=== PATIENT | male | born 1950 | race Two or more races ===

== ENCOUNTER 2017-06-23 22:01 | Emergency (ER) | payer MEDICARE, MEDICAID ==
[~2017-06-23] VITALS: Ht 162.6 cm; Wt 74.8 kg
[2017-06-23 22:10] VITALS: BP 137/83
[2017-06-23] MEDS ORDERED: NKM (22:10)
[2017-06-23] MEDS ORDERED: Ketorolac 30mg Inj IV ONE (22:15)
--- NOTE | 2017-06-23 22:18 | Emergency Room Report ---
History of Present Illness General Chief Complaint: Chest Pain Source: Patient, Family Member Present Illness HPI This is a 67-year-old male with no past medical history. He presents with main complaint of headache. His been ongoing for the last month. On and off. Mostly left-sided. The last week his blood pressure been fluctuating. At Dr. Ventura's office this was systolic 160-170. He is currently not on any medication. Has not take anything for the headache. Nothing [id number]. No fever or chills. No nausea no vomiting. No focal deficit. He came in today because he said he felt slight chest pressure. No exertional component. No nausea no vomiting. No shortness of breath. No diaphoresis. Allergies: Coded Allergies: No Known Allergies (Unverified , 06/23/17) Patient History Past Medical History: none, see triage record, old chart reviewed Past Surgical History: none Pertinent Family History: none Social History: Denies: smoking Immunizations: other Reviewed Nursing Documentation: PMH: Agreed, PSxH: Agreed Nursing Documentation-PMH Past Medical History: No Stated History Review of Systems Eye: Denies: eye pain, blurred vision ENT: Denies: ear pain, nose congestion, throat swelling Respiratory: Denies: cough, shortness of breath Cardiovascular: Reports: chest pain, Denies: palpitations Gastrointestinal: Denies: abdominal pain, diarrhea, nausea, vomiting Musculoskeletal: Denies: back pain, joint pain Skin: Denies: rash Neurological: Reports: headache, Denies: numbness Endocrine: Denies: increased thirst, increased urine Hematologic/Lymphatic: Denies: easy bruising All Other Systems: negative except mentioned in HPI Physical Exam Vital Signs Date Time Temp Pulse Resp B/P (MAP) Pulse Ox O2 Delivery O2 Flow Rate FiO2 06/23/17 22:06 97.9 63 16 137/83 96 Room Air vitals unremarkable Sp02 EP Interpretation: reviewed, normal General Appearance: well appearing, no apparent distress, alert Head: normocephalic, atraumatic Eyes: bilateral eye PERRL, bilateral eye EOMI ENT: hearing grossly normal, normal pharynx Neck: full range of motion, supple, no meningismus Respiratory: chest non-tender, lungs clear, normal breath sounds Cardiovascular #1: regular rate, rhythm, no murmur Gastrointestinal: normal bowel sounds, non tender, no mass, no organomegaly, no bruit, non-distended Musculoskeletal: back normal, gait/station normal, normal range of motion Psychiatric: mood/affect normal Skin: warm/dry Medical Decision Making Diagnostic Impression: Primary Impression: Chest pain Qualified Codes: R07.9 - Chest pain, unspecified Additional Impression: Headache Qualified Codes: R51 - Headache ER Course Patient presents with headache and chest pain. No evidence of intracranial bleed, some CVA, mass or meningitis. CT unremarkable. Chest pain is atypical in nature. Notice of ACS, PE, dissection to name a few. Discharge home. Headache better after Toradol. Lab Results Impression labs normal EKG Diagnostic Results Rate: normal Rhythm: NSR ST Segments: no acute changes Rhythm Strip Diag. Results Rhythm Strip Time: 22:17 EP Interpretation: yes Rate: 59 Rhythm: NSR, no PVC's, no ectopy Chest X-Ray Diagnostic Results Chest X-Ray Diagnostic Results : Chest X-Ray Ordered: Yes # of Views/Limited/Complete: 1 View Indication: Chest Pain EP Interpretation: Yes Interpretation: no consolidation, no effusion, no pneumothorax, no acute cardiopulmonary disease Impression: No acute disease Electronically Signed by: Electronically signed by Hank Dave MD Last Vital Signs Date Time Temp Pulse Resp B/P (MAP) Pulse Ox O2 Delivery O2 Flow Rate FiO2 06/23/17 22:06 97.9 63 16 137/83 96 Room Air Status: improved Disposition: HOME, SELF-CARE Condition: Stable Scripts Naproxen* (NAPROXEN*) 500 Mg Tablet 500 MG ORAL TWICE A WEEK, #30 TAB 0 Refills Prov: HANK DAVE M.D. 06/23/17 Patient Instructions: Nonspecific Chest Pain Additional Instructions: Followup with Dr. Ventura is scheduled. Return if symptom worsen. HANK DAVE M.D. Jun 23, 2017 22:17
[2017-06-23 22:31] LABS: BASOPHILS % (AUTO) 0.9 % (0.0-2.0); EOSINOPHILS % (AUTO) 2.6 % (0.0-3.0); LYMPHOCYTES % (AUTO) 41.5 % (20.0-45.0); MEAN CORPUSCULAR HEMOGLOBIN 32.2 PG (27.0-31.0); MEAN CORPUSCULAR HGB CONC 32.4 G/DL (32.0-36.0); MEAN CORPUSCULAR VOLUME 100 FL (80-99); MEAN PLATELET VOLUME 9.5 FL (6.5-10.1); MONOCYTES % (AUTO) 6.1 % (1.0-10.0); NEUTROPHILS % (AUTO) 48.9 % (45.0-75.0); PLATELET COUNT 155 K/UL (150-450); RED BLOOD COUNT 4.24 M/UL (4.70-6.10); RED CELL DISTRIBUTION WIDTH 10.5 % (11.6-14.8); WHITE BLOOD COUNT 7.6 K/UL (4.8-10.8)
[2017-06-23 23:02] LABS: ALANINE AMINOTRANSFERASE 20 U/L (12-78); ALBUMIN/GLOBULIN RATIO 1.1 (1.0-2.7); ANION GAP 9 mmol/L (5-15); ASPARTATE AMINO TRANSFERASE 15 U/L (15-37); CALCIUM 9.3 MG/DL (8.5-10.1); CARBON DIOXIDE 27 MMOL/L (21-32); CHLORIDE 105 MMOL/L (98-107); CREATININE 1.2 MG/DL (0.55-1.30); GLOMERULAR FILTRATION RATE > 60 mL/min (>60); POTASSIUM 3.8 MMOL/L (3.5-5.1); SODIUM 141 MMOL/L (136-145); TOTAL PROTEIN 6.8 G/DL (6.4-8.2)
[2017-06-23] MEDS ORDERED: NAPROXEN500 M2 ORAL (23:26)
[2017-06-23 23:28] VITALS: BP 126/81
[2017-06-23 23:46] LABS: APPEARANCE,URINE CLEAR; KETONES,URINE NEGATIVE (NEGATIVE); LEUKOCYTE ESTERASE ,URINE NEGATIVE (NEGATIVE); NITRITE,URINE NEGATIVE (NEGATIVE); PH,URINE 6 (4.5-8.0); PROTEIN,URINE NEGATIVE (NEGATIVE); UROBILINOGEN,URINE NORMAL MG/DL (0.0-1.0)
--- NOTE | 2017-06-24 10:03 | Diagnostic Imaging Report ---
Clinical history: As in header. Technique: Portable AP chest radiograph was obtained. Comparison: None Findings: Lung volumes are low with probable basilar atelectasis and vascular crowding. There is no pneumonia or pulmonary edema. There is no pleural effusion or pneumothorax. The cardiac and mediastinal silhouettes are normal in appearance. The bony thorax is unremarkable. Impression: Low lung volumes. No evidence of acute disease in the chest.
--- NOTE | 2017-06-24 10:05 | Diagnostic Imaging Report ---
CT Brain without Intravenous Contrast INDICATION: Headache. COMPARISON: None TECHNIQUE: Serial axial images were obtained from the the skull base through the vertex without intravenous contrast. Coronal reformats were obtained. Dose Estimate: Total DLP 1372 mGycm CTDIvol 70 mGy FINDINGS: The wetzel white matter differentiation appears normal. Mild periventricular and subcortical white matter hypodensities are nonspecific but may reflect sequela of chronic microangiopathy. There is no evidence of acute intracranial hemorrhage or territorial infarct. The cortical sulci, ventricles and extra-axial CSF spaces are normal in size for patient's age. There is no space occupying lesion, mass effect or midline shift. The visualized paranasal sinuses and mastoid air cells are clear. The osseous structures are unremarkable. IMPRESSION: 1. No acute intracranial hemorrhage, midline shift or mass effect.
--- NOTE | 2017-06-24 18:32 | Cardiology Report ---
APPROVED REPORT EKG Measurement Heart [id number] Sinus rhythm with 1st degree AV block Otherwise normal ECG
== END 2017-06-23 23:39 | disposition home or self-care (01) ==
LOC: EMR 23:30
DX: R07.89 Other chest pain (principal); R51 Headache
CPT/HCPCS: 36415; 70450; 71010; 80053; 81003; 82550; 82553; 84484; 85025; 93005; 96374; 96375; 99284; J1885

== ENCOUNTER 2017-11-11 22:03 | Emergency (ER) | payer MEDICARE, MEDICAID ==
[~2017-11-11] VITALS: Ht 157.5 cm; Wt 74.4 kg
[~2017-11-11 22:03] MED LIST: NAPROXEN500 M2 ORAL; NKM
[2017-11-11] MEDS ORDERED: BP MEDS (22:11)
--- NOTE | 2017-11-11 22:19 | Emergency Room Report ---
History of Present Illness General Chief Complaint: Male Urogenital Problems Source: Patient Present Illness HPI This is 67-year-old male with a history of hypertension and BPH. He is currently taking Flomax already. He presents with chief complaint of urinary urgency and frequency. Unable to fully empty his bladder. His been ongoing for a week. No fever or chills. No back pain. No hematuria. Denies any other complaint. Never had this problem before. Allergies: Coded Allergies: No Known Allergies (Unverified , 06/23/17) Patient History Past Medical History: see triage record, old chart reviewed, HTN Past Surgical History: other Pertinent Family History: none Social History: Denies: smoking Immunizations: other Reviewed Nursing Documentation: PMH: Agreed, PSxH: Agreed Nursing Documentation-PMH Hx Hypertension: Yes Review of Systems Eye: Denies: eye pain, blurred vision ENT: Denies: ear pain, nose congestion, throat swelling Respiratory: Denies: cough, shortness of breath Cardiovascular: Denies: chest pain, palpitations Gastrointestinal: Denies: abdominal pain, diarrhea, nausea, vomiting Genitourinary: Reports: dysuria Musculoskeletal: Denies: back pain, joint pain Skin: Denies: rash Neurological: Denies: headache, numbness Endocrine: Denies: increased thirst, increased urine Hematologic/Lymphatic: Denies: easy bruising All Other Systems: negative except mentioned in HPI Physical Exam Vital Signs Date Time Temp Pulse Resp B/P (MAP) Pulse Ox O2 Delivery O2 Flow Rate FiO2 11/11/17 22:06 98.3 66 18 157/90 94 Room Air 98.2 vitals with high blood pressure Sp02 EP Interpretation: reviewed, normal General Appearance: well appearing, no apparent distress, alert Head: normocephalic, atraumatic Eyes: bilateral eye PERRL, bilateral eye EOMI ENT: hearing grossly normal, normal pharynx Neck: full range of motion, supple, no meningismus Respiratory: chest non-tender, lungs clear, normal breath sounds Cardiovascular #1: regular rate, rhythm, no murmur Gastrointestinal: normal bowel sounds, non tender, no mass, no organomegaly, no bruit, non-distended Musculoskeletal: back normal, gait/station normal, normal range of motion Psychiatric: mood/affect normal Skin: warm/dry Medical Decision Making Diagnostic Impression: Primary Impression: UTI (urinary tract infection) Qualified Codes: N30.00 - Acute cystitis without hematuria ER Course Patient presents with a urinary tract infection. No evidence of pyelonephritis. No evidence of sepsis. We'll discharge home. Dose of antibiotics and Pyridium given here. Last Vital Signs Date Time Temp Pulse Resp B/P (MAP) Pulse Ox O2 Delivery O2 Flow Rate FiO2 11/11/17 22:06 98.3 66 18 157/90 94 Room Air 98.2 Status: improved Disposition: HOME, SELF-CARE Condition: Stable Scripts Phenazopyridine Hcl* (PYRIDIUM*) 200 Mg Tablet 200 MG ORAL THREE TIMES A DAY, #6 TAB 0 Refills Prov: JOSÉ MANUEL DAVE M.D. 11/11/17 Cephalexin* (KEFLEX*) 500 Mg Capsule 500 MG ORAL TID, #21 CAP 0 Refills Prov: JOSÉ MANUEL DAVE M.D. 11/11/17 Referrals: Brandon Ventura MD (PCP) Patient Instructions: Urinary Tract Infection Additional Instructions: Follow-up with your DrNalini in 7 days for recheck. Return if symptom worsen. JOSÉ MANUEL DAVE M.D. Nov 11, 2017 22:19
[2017-11-11 22:20] VITALS: BP 145/89
[2017-11-11 22:25] LABS: APPEARANCE,URINE CLOUDY; BILIRUBIN, URINE NEGATIVE (NEGATIVE); COLOR,URINE YELLOW; GLUCOSE, URINE (UA) NEGATIVE (NEGATIVE); KETONES,URINE NEGATIVE (NEGATIVE); LEUKOCYTE ESTERASE ,URINE 3+ (NEGATIVE); NITRITE,URINE NEGATIVE (NEGATIVE); PH,URINE 7 (4.5-8.0); PROTEIN,URINE 3+ (NEGATIVE); UROBILINOGEN,URINE NORMAL MG/DL (0.0-1.0)
[2017-11-11] MEDS ORDERED: PHENAZOPYRIDIN200 MG ORAL (22:42)
[2017-11-11] MEDS ORDERED: KEFLEX500 MG ORAL (22:42)
[2017-11-11] MEDS ORDERED: Phenazopyridine 200mg tab ORAL ONE (22:45)
[2017-11-11] MEDS ORDERED: Cephalexin 500mg cap ORAL ONE (22:45)
[2017-11-11 22:55] VITALS: BP 145/89
== END 2017-11-11 22:55 | disposition home or self-care (01) ==
LOC: EMR 22:15
DX: N30.00 Acute cystitis without hematuria (principal); I10 Essential (primary) hypertension; N40.1 Benign prostatic hyperplasia with lower urinary tract symptoms
CPT/HCPCS: 81003; 87086; 87181; 99284

== ENCOUNTER 2018-02-11 21:38 | Emergency (ER) | payer MEDICARE, MEDICAID ==
[~2018-02-11] VITALS: Ht 165.1 cm; Wt 78.0 kg
[~2018-02-11 21:38] MED LIST changes: +BP MEDS; +KEFLEX500 MG ORAL; +PHENAZOPYRIDIN200 MG ORAL
[2018-02-11] MEDS ORDERED: BP MED (21:50)
--- NOTE | 2018-02-11 22:05 | Emergency Room Report ---
History of Present Illness General Chief Complaint: Neck Pain Source: Patient Present Illness HPI Is a 67-year-old male with no significant past medical history. He presents with chief point of neck pain. Onset for 3 days. No trauma. Unable to turn his head. Pain is mostly in the left neck to the shoulder area. No fever or chills. There is some swelling to that area. Pain is 9 out of 10. Worse with movement. Allergies: Coded Allergies: No Known Allergies (Unverified , 06/23/17) Patient History Past Medical History: see triage record, old chart reviewed Past Surgical History: other Pertinent Family History: none Social History: Denies: smoking Immunizations: other Reviewed Nursing Documentation: PMH: Agreed; PSxH: Agreed Nursing Documentation-PMH Hx Hypertension: Yes Review of Systems Eye: Denies: eye pain, blurred vision ENT: Reports: other - Neck pain; Denies: ear pain, nose congestion, throat swelling Respiratory: Denies: cough, shortness of breath Cardiovascular: Denies: chest pain, palpitations Gastrointestinal: Denies: abdominal pain, diarrhea, nausea, vomiting Musculoskeletal: Denies: back pain, joint pain Skin: Denies: rash Neurological: Denies: headache, numbness Endocrine: Denies: increased thirst, increased urine Hematologic/Lymphatic: Denies: easy bruising All Other Systems: negative except mentioned in HPI Physical Exam Vital Signs Date Time Temp Pulse Resp B/P (MAP) Pulse Ox O2 Delivery O2 Flow Rate FiO2 02/11/18 21:45 98.4 65 18 133/77 96 Room Air 98.4 vitals normal Sp02 EP Interpretation: reviewed, normal General Appearance: well appearing, no apparent distress, alert Head: normocephalic, atraumatic Eyes: bilateral eye PERRL, bilateral eye EOMI ENT: hearing grossly normal, normal pharynx Neck: supple, no meningismus, tender - Over left paraspinous and trapezius muscle Respiratory: chest non-tender, lungs clear, normal breath sounds Cardiovascular #1: regular rate, rhythm, no murmur Gastrointestinal: normal bowel sounds, non tender, no mass, no organomegaly, no bruit, non-distended Musculoskeletal: back normal, gait/station normal, normal range of motion Psychiatric: mood/affect normal Skin: warm/dry Medical Decision Making Diagnostic Impression: Primary Impression: Herniated disc, cervical Additional Impression: Spinal stenosis of cervical region ER Course Patient presents with neck pain and CT scan showed herniated disc with spinal canal stenosis. No evidence of septic joint. No evidence of cauda equina syndrome, spinal epidural abscess, or neoplastic process. We'll discharge home CT/MRI/US Diagnostic Results CT/MRI/US Diagnostic Results : Imaging Test Ordered: CT neck Impression Read by radiologist. Disc protrusion at C3-C4 and C4-C5 with spinal canal stenosis. Last Vital Signs Date Time Temp Pulse Resp B/P (MAP) Pulse Ox O2 Delivery O2 Flow Rate FiO2 02/11/18 21:45 98.4 65 18 133/77 96 Room Air 98.4 Status: improved Disposition: HOME, SELF-CARE Condition: Stable Scripts Prednisone* (PREDNISONE*) 20 Mg Tablet 40 MG ORAL DAILY, #10 TAB Prov: JOSÉ MANUEL DAVE M.D. 02/11/18 Hydrocodone/Acetaminophen 5-325* (HYDROCODONE/ACETAMINOPHEN 5-325*) 1 Each Tablet 1 TAB ORAL Q6H PRN for For Pain, #30 TAB 0 Refills Prov: JOSÉ MANUEL DAVE M.D. 02/11/18 Additional Instructions: follow-up with your doctor in 7 days. Return if worse. JOSÉ MANUEL DAVE M.D. Feb 11, 2018 22:05
[2018-02-11] MEDS ORDERED: Norco 5mg/325mg tab ORAL ONE (22:15)
[2018-02-11] MEDS ORDERED: PREDNISONE20 MG ORAL (23:06)
[2018-02-11] MEDS ORDERED: HYDROCODON-ACE1 EA15 ORAL (23:06)
[2018-02-11 23:16] VITALS: BP 133/77
--- NOTE | 2018-02-12 12:28 | Diagnostic Imaging Report ---
Indication: Neck pain x2-3 days Technique: Spiral acquisitions obtained through the cervical spine. No IV contrast utilized. Multiplanar reconstructions were generated. Total dose length product 269.07 mGycm. CTDIvol(s) 14.24 mGy. Dose reduction achieved using automated exposure control. Comparison: none Findings: There is straightening of the normal cervical lordosis, otherwise normal bony alignment. No acute fractures. No dislocations. Vertebral body heights are preserved. At C2-3, there is central posterior disc protrusion which does not significantly narrow the spinal canal or compromise the cord. The neural foramina are preserved. At C3-4, there is posterior disc protrusion/osteophyte complex. This results in borderline narrowing of the spinal canal at this level. The neural foramina are preserved. The disc space is preserved. There is facet arthrosis on the left. At C4-5, there is posterior disc bulge and osteophyte complex which results in borderline narrowing of the spinal canal. There is moderate to severe right and minimal left neural foraminal stenosis. At C5-6, there is moderate narrowing of the disc space. No significant disc bulge or protrusion or spinal stenosis. There is moderate to severe bilateral neural foraminal stenosis. At C6-7, there is moderate narrowing of the disc. There is mild bilateral neural foraminal stenosis. No significant disc bulge or protrusion or spinal stenosis. At C7-T1, there is moderate narrowing of the disc. No significant disc bulge or protrusion, bilateral stenosis, or neural foraminal stenosis. The included extra spinal soft tissues are essentially unremarkable. Calcifications are seen in the adenoids and bilateral tonsils Impression: No acute bony trauma Degenerative changes as described above This agrees with the preliminary interpretation provided overnight by [facility] telerad[facility] service. The CT scanner at [facility] is accredited by the [employer] [place] and the scans are performed using protocols designed to limit radiation exposure to as low as reasonably achievable to attain images of sufficient resolution adequate for diagnostic evaluation.
== END 2018-02-11 23:31 | disposition home or self-care (01) ==
LOC: EMR 22:05
DX: M50.21 Other cervical disc displacement, high cervical region (principal); M48.02 Spinal stenosis, cervical region; I10 Essential (primary) hypertension
CPT/HCPCS: 72125; 99284

== ENCOUNTER 2018-04-07 20:51 | Emergency (ER) | payer MEDICARE, MEDICAID ==
[~2018-04-07] VITALS: Ht 160 cm; Wt 74.4 kg
[~2018-04-07 20:51] MED LIST changes: +BP MED; +HYDROCODON-ACE1 EA15 ORAL; +PREDNISONE20 MG ORAL
[2018-04-07 21:14] VITALS: BP 150/96
--- NOTE | 2018-04-07 21:19 | Emergency Room Report ---
History of Present Illness General Chief Complaint: Hypertension Source: Patient Present Illness HPI Patient presents with complaints of occipital headache Reports that he had taken his blood pressure at home it was 156 which is higher than usual for him Patient had taken one of his usual blood pressure medication which includes Diovan The claims of the patient had some heavier speech than usual 3 hours ago which resolved after few minutes Patient has ongoing neck discomfort from previous neck pain There is no change with that Patient is also seeing an neuro psych sales specialist Currently denies any chest pain or shortness of breath denies any back or flank pain Denies any focal weakness Allergies: Coded Allergies: No Known Allergies (Unverified , 06/23/17) Patient History Past Medical History: see triage record Pertinent Family History: none Reviewed Nursing Documentation: PMH: Agreed; PSxH: Agreed Nursing Documentation-PMH Hx Hypertension: Yes Review of Systems All Other Systems: negative except mentioned in HPI Physical Exam Vital Signs Date Time Temp Pulse Resp B/P (MAP) Pulse Ox O2 Delivery O2 Flow Rate FiO2 04/07/18 21:01 98.2 67 18 142/82 94 Room Air 98.2 Sp02 EP Interpretation: reviewed, normal General Appearance: well appearing, no apparent distress Head: normocephalic, atraumatic Eyes: bilateral eye PERRL, bilateral eye EOMI ENT: hearing grossly normal, normal pharynx, TMs + canals normal, uvula midline Neck: full range of motion, supple, no meningismus, no bony tend Respiratory: lungs clear, normal breath sounds, no rhonchi, no respiratory distress, no retraction, no accessory muscle use Cardiovascular #1: normal peripheral pulses, regular rate, rhythm, no edema, no gallop, no JVD, no murmur Gastrointestinal: normal bowel sounds, non tender, soft, no mass, no organomegaly, non-distended, no guarding, no hernia, no pulsatile mass, no rebound Genitourinary: no CVA tenderness Musculoskeletal: normal inspection Neurologic: oriented x3, responsive, 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, motor strength/ tone normal, sensory intact Psychiatric: mood/affect normal Skin: normal color, no rash, warm/dry, palpation normal Lymphatic: normal inspection, no adenopathy Medical Decision Making Diagnostic Impression: Primary Impression: Hypertension ER Course Given the patient's discomfort and description of presentation CT imaging was obtained along with blood work patient's blood pressure has improved throughout his stay At this time also feels significantly improved CT head did not show any acute pathology and patient stable for close follow-up Labs Test 04/07/18 21:20 White Blood Count 7.7 K/UL (4.8-10.8) Red Blood Count 4.22 M/UL (4.70-6.10) Hemoglobin 13.8 G/DL (14.2-18.0) Hematocrit 40.7 % (42.0-52.0) Mean Corpuscular Volume 96 FL (80-99) Mean Corpuscular Hemoglobin 32.6 PG (27.0-31.0) Mean Corpuscular Hemoglobin Concent 33.8 G/DL (32.0-36.0) Red Cell Distribution Width 11.3 % (11.6-14.8) Platelet Count 181 K/UL (150-450) Mean Platelet Volume 9.1 FL (6.5-10.1) Neutrophils (%) (Auto) 48.4 % (45.0-75.0) Lymphocytes (%) (Auto) 40.0 % (20.0-45.0) Monocytes (%) (Auto) 8.2 % (1.0-10.0) Eosinophils (%) (Auto) 2.5 % (0.0-3.0) Basophils (%) (Auto) 1.0 % (0.0-2.0) Sodium Level 141 MMOL/L (136-145) Potassium Level 3.7 MMOL/L (3.5-5.1) Chloride Level 105 MMOL/L (98-107) Carbon Dioxide Level 28 MMOL/L (21-32) Anion Gap 8 mmol/L (5-15) Blood Urea Nitrogen 19 mg/dL (7-18) Creatinine 1.1 MG/DL (0.55-1.30) Estimat Glomerular Filtration Rate > 60 mL/min (>60) Glucose Level 111 MG/DL (74-106) Calcium Level 8.6 MG/DL (8.5-10.1) Total Bilirubin 0.3 MG/DL (0.2-1.0) Aspartate Amino Transf (AST/SGOT) 14 U/L (15-37) Alanine Aminotransferase (ALT/SGPT) 32 U/L (12-78) Alkaline Phosphatase 88 U/L (46-116) Total Creatine Kinase 78 U/L (26-308) Creatine Kinase MB 0.7 NG/ML (0.0-3.6) Creatine Kinase MB Relative Index 0.8 Troponin I 0.000 ng/mL (0.000-0.056) Total Protein 7.0 G/DL (6.4-8.2) Albumin 3.5 G/DL (3.4-5.0) Globulin 3.5 g/dL Albumin/Globulin Ratio 1.0 (1.0-2.7) EKG Diagnostic Results Rate: normal Rhythm: NSR ST Segments: no acute changes Rhythm Strip Diag. Results EP Interpretation: yes Rate: 67 Rhythm: NSR, no PVC's, no ectopy CT/MRI/US Diagnostic Results CT/MRI/US Diagnostic Results : Impression CT head no acute disease Last Vital Signs Date Time Temp Pulse Resp B/P (MAP) Pulse Ox O2 Delivery O2 Flow Rate FiO2 04/07/18 21:14 67 18 Room Air 04/07/18 21:14 150/96 04/07/18 21:01 98.2 94 98.2 Status: improved Disposition: HOME, SELF-CARE Condition: Improved Additional Instructions: Patient is provided with the discharge instructions notified to follow up with primary doctor in the next 2-3 days otherwise return to the er with any worsening symptoms. Please note that this report is being documented using [employer] technology. This can lead to erroneous entry secondary to incorrect interpretation by the dictating instrument. Alexandre Ellis DO Apr 07, 2018 21:19
[2018-04-07] MEDS ORDERED: Morphine Sulfate 4mg/ml Inj (IV USE ONLY) IVP ONE (21:30)
[2018-04-07] MEDS ORDERED: DiphenhydrAMINE 50mg/ml Inj IVP ONE (21:30)
[2018-04-07 21:38] LABS: EOSINOPHILS % (AUTO) 2.5 % (0.0-3.0); HEMATOCRIT 40.7 % (42.0-52.0); HEMOGLOBIN 13.8 G/DL (14.2-18.0); MEAN CORPUSCULAR VOLUME 96 FL (80-99); MONOCYTES % (AUTO) 8.2 % (1.0-10.0); NEUTROPHILS % (AUTO) 48.4 % (45.0-75.0); PLATELET COUNT 181 K/UL (150-450); RED BLOOD COUNT 4.22 M/UL (4.70-6.10); RED CELL DISTRIBUTION WIDTH 11.3 % (11.6-14.8); WHITE BLOOD COUNT 7.7 K/UL (4.8-10.8)
[2018-04-07 21:53] LABS: ANION GAP 8 mmol/L (5-15); BLOOD UREA NITROGEN 19 mg/dL (7-18); CALCIUM 8.6 MG/DL (8.5-10.1); CARBON DIOXIDE 28 MMOL/L (21-32); CHLORIDE 105 MMOL/L (98-107); CREATININE 1.1 MG/DL (0.55-1.30); POTASSIUM 3.7 MMOL/L (3.5-5.1); SODIUM 141 MMOL/L (136-145)
[2018-04-07 22:06] LABS: ALANINE AMINOTRANSFERASE 32 U/L (12-78); ALBUMIN 3.5 G/DL (3.4-5.0); ALKALINE PHOSPHATASE 88 U/L (46-116); ASPARTATE AMINO TRANSFERASE 14 U/L (15-37); BILIRUBIN,TOTAL 0.3 MG/DL (0.2-1.0); CKMB 0.7 NG/ML (0.0-3.6); CREATINE KINASE 78 U/L (26-308)
[2018-04-07 23:06] VITALS: BP 150/96
--- NOTE | 2018-04-08 09:39 | Diagnostic Imaging Report ---
Indication: Pain Technique: spiral acquisitions obtained through the brain. Angled axial and coronal 5 x 5 mm slices were reconstructed. No IV contrast utilized. Radiation dose was minimized using automated exposure control Total dose length product 1411.13 mGycm. CTDIvol(s) 70.38 mGy Comparison: none FINDINGS: No acute hemorrhage or edema. No mass effect or midline shift. There is age-related enlargement of the ventricles and extra axial CSF spaces. There is periventricular deep white matter ischemic change. Normal wetzel-white differentiation. Visualized orbits are unremarkable. There is minimal ethmoid sinus disease. Intact calvarium. IMPRESSION: Chronic and age-related changes. Negative for acute intracranial bleed or mass effect This agrees with the preliminary interpretation provided overnight by [facility] service. The CT scanner at [facility] is accredited by the [employer] and the scans are performed using protocols designed to limit radiation exposure to as low as reasonably achievable to attain images of sufficient resolution adequate for diagnostic evaluation
--- NOTE | 2018-04-22 18:54 | Cardiology Report ---
APPROVED REPORT EKG Measurement Heart [id number] Sinus rhythm with 1st degree AV block Possible Anterior infarct, age undetermined Abnormal ECG
== END 2018-04-07 23:07 | disposition home or self-care (01) ==
LOC: EMR 21:30
DX: I10 Essential (primary) hypertension (principal); R51 Headache
CPT/HCPCS: 36415; 70450; 80053; 82550; 82553; 84484; 85025; 93005; 96374; 96375; 99285; J1200; J2270; J2405

== ENCOUNTER 2019-11-13 10:23 | Emergency (ER) | payer MEDICARE, MEDICAID ==
[~2019-11-13] VITALS: Ht 167.6 cm; Wt 77.1 kg
[2019-11-13] MEDS ORDERED: Meclizine 25mg tab ORAL ONE (10:45)
[2019-11-13] MEDS ORDERED: MECLIZINE HCL25 MG ORAL (10:49)
--- NOTE | 2019-11-13 10:49 | Emergency Room Report ---
History of Present Illness General Chief Complaint: Dizziness Source: Patient Present Illness HPI 69-year-old male presents with dizziness, he states he got up suddenly felt the room spinning denies any lightheadedness, no nausea no vomiting he felt like he was on a boat severity was severe lasting a few minutes he also felt a similar episode at 7 AM when he woke up again aggravating factors appear to be positional alleviating factors staying still patient presents for evaluation no chest pain or shortness of breath COVID-19 risk:Contact w/high r: No COVID-19 risk:Travel to affect: No Has patient experienced parson: No Allergies: Coded Allergies: No Known Allergies (Unverified , 06/23/17) Patient History Past Medical History: see triage record Reviewed Nursing Documentation: PMH: Agreed; PSxH: Agreed Nursing Documentation-PMH Past Medical History: No History, Except For Hx Hypertension: Yes Review of Systems All Other Systems: negative except mentioned in HPI Physical Exam Vital Signs Date Time Temp Pulse Resp B/P (MAP) Pulse Ox O2 Delivery O2 Flow Rate FiO2 11/13/19 10:27 97.3 62 19 168/102 (124) 97 Room Air Sp02 EP Interpretation: reviewed, normal General Appearance: well appearing, no apparent distress, alert Head: normocephalic, atraumatic Eyes: bilateral eye PERRL, bilateral eye EOMI ENT: uvula midline, moist mucus membranes Neck: supple, thyroid normal, supple/symm/no masses Respiratory: lungs clear, no respiratory distress, no retraction, no accessory muscle use Cardiovascular #1: normal peripheral pulses, regular rate, rhythm, no edema, no gallop, no murmur Gastrointestinal: non tender, soft, no guarding, no rebound Musculoskeletal: normal inspection Neurologic: alert, motor strength/tone normal, 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, oriented, oriented x3, sensory intact, cerebellar normal - Finger-nose testing intact, Romberg negative, speech normal, normal gait, no pronator Psychiatric: mood/affect normal Skin: no rash, warm/dry Medical Decision Making Diagnostic Impression: Primary Impression: Dizziness ER Course 69-year-old male presents most likely with vertigo no evidence of stroke differential also includes Mnire's disease We will provide patient with meclizine disposition home with return precautions CT brain negative CT/MRI/US Diagnostic Results CT/MRI/US Diagnostic Results : Impression Procedure: CT Head no Contrast Indication: Headache Technique: Contiguous 5 mm thick transaxial imaging of the head obtained in a Siemens Sensation [address] scanner. Soft tissue and bone windows generated. Automatic Exposure Control was utilized. Total Dose length Product (DLP): 1072.2mGycm CT Dose Index Volume (CTDIvol): 53.4 mGy Comparison: 11/13/2019 Findings: There is mild prominence of the ventricles, basal cisterns, and cerebral sulci consistent with atrophy. Mild, nonspecific, white matter hypoattenuation is noted throughout the brain consistent with chronic small vessel disease. There is no midline shift, edema, acute hemorrhage, mass effect, or abnormal extra-axial fluid collections. Bones are unremarkable. Impression: No acute intracranial bleed, mass effect or edema. Mild atrophy of the brain. Nonspecific white matter hypoattenuation probably due to chronic small vessel disease. The CT scanner at [facility] is accredited by the [employer] and the scans are performed using dose optimization techniques as appropriate to a performed exam including Automatic Exposure control. Dictated By: Chris Luz MD Electronically Signed By: Chris Luz MD Signed Date/Time 11/13/19 1138 CC: Boyd Nayak MD Last Vital Signs Date Time Temp Pulse Resp B/P (MAP) Pulse Ox O2 Delivery O2 Flow Rate FiO2 11/13/19 10:27 97.3 62 19 168/102 (124) 97 Room Air Disposition: HOME, SELF-CARE Condition: Stable Scripts Meclizine Hcl* (MECLIZINE*) 25 Mg Tablet 25 MG ORAL THREE TIMES A DAY PRN for for dizziness, #30 TAB Prov: Boyd Nayak MD 11/13/19 Referrals: [facility] Patient Instructions: Vertigo Additional Instructions: The patient was provided with discharge instructions, notified to follow-up with a primary care doctor and or specialist in the next 24-48 hours, and to return to the ED if they have worsening of their symptoms. Please note that this report is being documented using [employer] medical technology. This can lead to erroneous entry secondary to incorrect interpretation by the dictating instrument. Boyd Nayak MD Nov 13, 2019 10:49
[2019-11-13 10:55] VITALS: BP 168/102
--- NOTE | 2019-11-13 11:43 | Diagnostic Imaging Report ---
Indication: Headache Technique: Contiguous 5 mm thick transaxial imaging of the head obtained in a Siemens Sensation [address] scanner. Soft tissue and bone windows generated. Automatic Exposure Control was utilized. Total Dose length Product (DLP): 1072.2mGycm CT Dose Index Volume (CTDIvol): 53.4 mGy Comparison: 11/13/2019 Findings: There is mild prominence of the ventricles, basal cisterns, and cerebral sulci consistent with atrophy. Mild, nonspecific, white matter hypoattenuation is noted throughout the brain consistent with chronic small vessel disease. There is no midline shift, edema, acute hemorrhage, mass effect, or abnormal extra-axial fluid collections. Bones are unremarkable. Impression: No acute intracranial bleed, mass effect or edema. Mild atrophy of the brain. Nonspecific white matter hypoattenuation probably due to chronic small vessel disease. The CT scanner at [facility] is accredited by the [employer] and the scans are performed using dose optimization techniques as appropriate to a performed exam including Automatic Exposure control.
[2019-11-13 12:05] VITALS: BP 159/98
== END 2019-11-13 12:05 | disposition home or self-care (01) ==
LOC: EMR 11:00
DX: R42 Dizziness and giddiness (principal); I10 Essential (primary) hypertension
CPT/HCPCS: 70450; 99284

== ENCOUNTER 2020-08-10 10:14 | Emergency (ER) | payer MEDICARE, MEDICAID ==
[~2020-08-10] VITALS: Ht 165.1 cm; Wt 77.1 kg
[~2020-08-10 10:14] MED LIST changes: +MECLIZINE HCL25 MG ORAL
[2020-08-10 10:28] VITALS: BP 127/89
--- NOTE | 2020-08-10 10:28 | NUR ---
ED Nurse Note: Patient from home and walked in due to left big toe laceration and injury. Patient was at [facility] and a heavy box fell on his toe. Noted bleeding, swelling and bruising on the nail bed. Patient is AAO x4 and ambulatory.
[2020-08-10] MEDS ORDERED: Bacitracin Oint UD TOPIC ONE (10:45)
[2020-08-10] MEDS ORDERED: Tetanus/Diptheria/Pertussis IM ONE (10:45)
--- NOTE | 2020-08-10 10:46 | NUR ---
ED Nurse Note: RN soaked left big toe with dried blood on saline per ERMD order.
--- NOTE | 2020-08-10 11:08 | NUR ---
ED Nurse Note: Called radiology to ff up with xray.
--- NOTE | 2020-08-10 11:25 | Emergency Room Report ---
History of Present Illness General Chief Complaint: Wound Recheck/Suture Removal Source: Patient Present Illness HPI The patient was at [facility] at 7pm yesterday. A heavy box fell onto his toe. The toenail is purple and there is a area of skin at the base of the toenail that is been split. Patient reports the pain at 10/10 at this time. He poorly describes the pain. The pain is nonradiating. No numbness. It is greater than 10 years since his last tetanus shot. Patient denies diabetes. History of hypertension.. 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 [place] Reviewed Nursing Documentation: PMH: Agreed; PSxH: Agreed Nursing Documentation-PMH Hx Hypertension: Yes Review of Systems Constitutional: Denies: fever Musculoskeletal: Reports: see HPI Skin: Reports: see HPI Neurological: Reports: see HPI Physical Exam Vital Signs Date Time Temp Pulse Resp B/P (MAP) Pulse Ox O2 Delivery O2 Flow Rate FiO2 08/10/20 10:28 98.2 98 19 127/89 96 Room Air Sp02 EP Interpretation: reviewed, normal General Appearance: well appearing, no apparent distress, GCS 15 Head: normocephalic Eyes: bilateral eye normal inspection, bilateral eye PERRL ENT: other - Wearing a mask Neck: normal inspection Respiratory: normal inspection Cardiovascular #1: regular rate, rhythm Cardiovascular #2: 2+ radial (L), 2+ dorsalis pedis (L) - Good capillary refill Gastrointestinal: normal inspection Musculoskeletal: swelling - Big toe, no calf tenderness, tenderness - Big toe, moves extm spontaneously Neurologic: distal neuro normal, oriented x3, grossly normal Skin: warm/dry, abrasions - Base of nail, hematoma - Tip of toe as well as subungual Procedures Additional Procedure Procedure Narrative The nail was prepped with Betadine. Electrocautery was used to treponeme the nail. Blood drained with relief. Tolerated well. Dressing applied an Ortho boot provided. Medical Decision Making Diagnostic Impression: Primary Impression: Toe fracture, left Qualified Codes: S92.425A - Nondisplaced fracture of distal phalanx of left great toe, initial encounter for closed fracture Additional Impression: Subungual hematoma ER Course Patient presents with a crush injury to his left great toe that occurred yesterday. He has a subungual hematoma. Differential includes fracture versus contusion. Patient will and have x-ray taken. In addition he will receive Motrin. As there is a subungual hematoma this will be treponemed. See procedure note. Patient tolerated treponeme well. X-ray reveals fracture of the great toe distal phalanx. Discussed results with patient. Discussed treatment plan with patient. Patient reports relief with analgesia. Patient stable for outpatient observation and treatment. Other X-Ray Diagnostic Results Other X-Ray Diagnostic Results : X-Ray ordered: Left foot # of Views/Limited Vs Complete: 3 View Indication: Pain EP Interpretation: Yes Interpretation: no dislocation, other - Fracture distal phalanx, nondisplaced, soft tissue swelling Impression: Other Electronically Signed by: Electronically signed by Kael Madrid MD Last Vital Signs Date Time Temp Pulse Resp B/P (MAP) Pulse Ox O2 Delivery O2 Flow Rate FiO2 08/10/20 11:46 98.4 88 20 132/75 98 Room Air Status: improved Disposition: HOME, SELF-CARE Condition: Improved Scripts Ibuprofen* (MOTRIN*) 600 Mg Tablet 600 MG ORAL Q6H PRN for FOR PAIN, #16 TAB 0 Refills Prov: Kael Madrid MD 08/10/20 Bacitracin (Bacitracin) 28.4 Gm Oint...g. 1 APPLIC TOPIC BID, #20 GM Prov: Kael Madrid MD 08/10/20 Referrals: NOT CHOSEN TONYA/,REFERRING (PCP) Kael Madrid MD Aug 10, 2020 11:25
[2020-08-10] MEDS ORDERED: IBUPROFEN600 M1 ORAL (11:30)
[2020-08-10] MEDS ORDERED: BACITRACIN15 GM TOPIC (11:30)
[2020-08-10 11:46] VITALS: BP 132/75
--- NOTE | 2020-08-10 11:46 | NUR ---
ER DISCHARGE NOTE: post-op boot placed on the L-foot. applied bacitracin and dressing per ERMD order. Pt. tolerated well the treatment. Patient is cleared to be discharged per ERMD, pt is aox4, on room air, with stable vital signs. pt was given dc and prescription instructions, pt was able to verbalize understanding, pt id band removed. pt is able to ambulate with steady gait. pt took all belongings.
--- NOTE | 2020-08-10 15:19 | Diagnostic Imaging Report ---
Indication: Left foot trauma Technique: 3 views left foot Comparison: none Findings: There is a transverse nondisplaced fracture of the base of the distal phalanx. There may also be a fracture of the terminal tuft. There is suggestion of a corner fracture of the medial base of the first proximal phalanx, but the edges appear corticated and probably not acute. No other fractures. No dislocations. There are degenerative changes of the first metatarsal phalangeal joint. Impression: Positive for acute first distal phalangeal fracture This agrees with the preliminary interpretation reported by the emergency room physician in the electronic medical record
== END 2020-08-10 11:46 | disposition home or self-care (01) ==
LOC: EMR 10:50
DX: S92.425A Nondisplaced fracture of distal phalanx of left great toe, initial encounter for closed fracture (principal); S90.212A Contusion of left great toe with damage to nail, initial encounter; I10 Essential (primary) hypertension; W22.8XXA Striking against or struck by other objects, initial encounter; Y93.9 Activity, unspecified; Y92.512 Supermarket, store or market as the place of occurrence of the external cause
CPT/HCPCS: 90471; 90715; 99283

== ENCOUNTER 2020-11-19 08:20 | Emergency (ER) | payer MEDICARE, MEDICAID ==
[~2020-11-19] VITALS: Ht 162.6 cm; Wt 77.1 kg
[~2020-11-19 08:20] MED LIST changes: +BACITRACIN15 GM TOPIC; +IBUPROFEN600 M1 ORAL
[2020-11-19 08:36] VITALS: BP 156/91
[2020-11-19 08:53] LABS: BASOPHILS % (AUTO) 0.4 % (0.0-2.0); EOSINOPHILS % (AUTO) 3.1 % (0.0-3.0); HEMATOCRIT 44.5 % (42.0-52.0); HEMOGLOBIN 14.7 G/DL (14.2-18.0); LYMPHOCYTES % (AUTO) 26.8 % (20.0-45.0); MEAN CORPUSCULAR VOLUME 96 FL (80-99); MONOCYTES % (AUTO) 5.8 % (1.0-10.0); PLATELET COUNT 210 K/UL (150-450); RED BLOOD COUNT 4.64 M/UL (4.70-6.10); RED CELL DISTRIBUTION WIDTH 11.3 % (11.6-14.8); WHITE BLOOD COUNT 10.4 K/UL (4.8-10.8)
--- NOTE | 2020-11-19 09:11 | NUR ---
ED Nurse Note: pt walked into the ed due to chest pain when he cough. Pt is A&Ox4,verbal and ambulatory. No sob and fever.
[2020-11-19 09:14] LABS: ANION GAP 7 mmol/L (5-15); BLOOD UREA NITROGEN 16 mg/dL (7-18); CALCIUM 8.9 MG/DL (8.5-10.1); CARBON DIOXIDE 31 MMOL/L (21-32); CHLORIDE 105 MMOL/L (98-107); CREATININE 1.2 MG/DL (0.55-1.30); POTASSIUM 3.3 MMOL/L (3.5-5.1); SODIUM 143 MMOL/L (136-145)
[2020-11-19 09:19] LABS: ALANINE AMINOTRANSFERASE 61 U/L (12-78); ALBUMIN 3.8 G/DL (3.4-5.0); ALKALINE PHOSPHATASE 99 U/L (46-116); ASPARTATE AMINO TRANSFERASE 30 U/L (15-37); BILIRUBIN,TOTAL 0.7 MG/DL (0.2-1.0)
[2020-11-19] MEDS ORDERED: LEVOFLOXACIN750 MG ORAL (09:37)
[2020-11-19] MEDS ORDERED: TYLENOL EXTRA500 MG ORAL (09:37)
[2020-11-19 09:48] VITALS: BP 135/78
--- NOTE | 2020-11-19 09:49 | NUR ---
ER DISCHARGE NOTE: Patient is cleared to be discharged per ERMD, pt is aox4, on room air, with stable vital signs. pt was given dc and prescription instructions, pt was able to verbalize understanding, pt id band and iv site removed without complications. pt is able to ambulate with steady gait. pt took all belongings.
--- NOTE | 2020-11-19 10:20 | Emergency Room Report ---
History of Present Illness General Chief Complaint: Chest Pain Source: Patient Present Illness HPI 70-year-old male presents for evaluation. States for 1 week he has been coughing and states that while he coughs he has pain on the left side of his chest. Denies pain right now. Cough is dry. Denies fevers or chills. Denies shortness of breath. States that he has been fully vaccinated against Covid. No other aggravating relieving factors. 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 Patient History Past Medical History: none, HTN Past Surgical History: none Pertinent Family History: none Social History: Denies: smoking, alcohol use, drug use Immunizations: UTD Reviewed Nursing Documentation: PMH: Agreed; PSxH: Agreed Nursing Documentation-PMH Hx Hypertension: Yes Review of Systems All Other Systems: negative except mentioned in HPI Physical Exam Vital Signs Date Time Temp Pulse Resp B/P (MAP) Pulse Ox O2 Delivery O2 Flow Rate FiO2 11/19/20 08:29 97.5 77 18 156/91 (112) 96 11/19/20 08:36 Room Air Sp02 EP Interpretation: reviewed, normal General Appearance: no apparent distress, alert, GCS 15, non-toxic Head: normocephalic, atraumatic Eyes: bilateral eye normal inspection, bilateral eye PERRL ENT: hearing grossly normal, normal pharynx, no angioedema, normal voice Neck: full range of motion, supple/symm/no masses Respiratory: chest non-tender, lungs clear, normal breath sounds, speaking full sentences Cardiovascular #1: regular rate, rhythm, no edema Cardiovascular #2: 2+ carotid (R), 2+ carotid (L), 2+ radial (R), 2+ radial (L), 2+ dorsalis pedis (R), 2+ dorsalis pedis (L) Gastrointestinal: normal bowel sounds, non tender, soft, non-distended, no guarding, no rebound Rectal: deferred Genitourinary: normal inspection, no CVA tenderness Musculoskeletal: back normal, normal range of motion, gait/station normal, non- tender Neurologic: alert, motor strength/tone normal, oriented x3, sensory intact, responsive, speech normal Psychiatric: judgement/insight normal, memory normal, mood/affect normal, no suicidal/homicidal ideation Reflexes: 3+ bicep (R), 3+ bicep (L), 3+ tricep (R), 3+ tricep (L), 3+ knee (R), 3+ knee (L) Lymphatic: no adenopathy Medical Decision Making Diagnostic Impression: Primary Impression: Cough Additional Impression: Hypertension Qualified Codes: I10 - Essential (primary) hypertension ER Course Hospital Course 70-year-old male presents with chest pain for 1 week with coughing. Differential diagnoses include: Rib fracture, TX/unstable angina, contusion, muscle strain Clinical course Patient placed on stretcher. After initial history and physical I ordered labs, EKG, chest x-ray. labs reviewed- all electrolytes normal, troponins negative, no leukocytosis, hemoglobin/hematocrit stable EKG - NSR no acute ischemic changes interpreted by me Chest x-ray-no cardiomegaly, no rib fracture, no pneumothorax, no acute process I discussed findings with patient. EKG no acute changes. Chest x-ray clear. Labs unremarkable. Vitals stable. Pain likely muscular due to coughing episodes. Given age and comorbidities will discharge with antibiotics. Safe for discharge with close outpatient follow-up. States he has a PMD I. I feel this is a highly complex case requiring extensive working including EKG/Rhythm strip, Xray/CT/US, Blood/urine lab work, repeat exams while in ED, and administration of strong opiates/narcotics for pain control, admission to hospital or close patient follow up. Diagnosis -cough, hypertension Stable and discharged to home. Instructed to followup with PMD. Return to ED if symptoms recur or worsen Laboratory Tests Test 11/19/20 08:44 White Blood Count 10.4 K/UL (4.8-10.8) Red Blood Count 4.64 M/UL (4.70-6.10) L Hemoglobin 14.7 G/DL (14.2-18.0) Hematocrit 44.5 % (42.0-52.0) Mean Corpuscular Volume 96 FL (80-99) Mean Corpuscular Hemoglobin 31.6 PG (27.0-31.0) H Mean Corpuscular Hemoglobin Concent 33.0 G/DL (32.0-36.0) Red Cell Distribution Width 11.3 % (11.6-14.8) L Platelet Count 210 K/UL (150-450) Mean Platelet Volume 9.7 FL (6.5-10.1) Neutrophils (%) (Auto) 64.0 % (45.0-75.0) Lymphocytes (%) (Auto) 26.8 % (20.0-45.0) Monocytes (%) (Auto) 5.8 % (1.0-10.0) Eosinophils (%) (Auto) 3.1 % (0.0-3.0) H Basophils (%) (Auto) 0.4 % (0.0-2.0) Sodium Level 143 MMOL/L (136-145) Potassium Level 3.3 MMOL/L (3.5-5.1) L Chloride Level 105 MMOL/L (98-107) Carbon Dioxide Level 31 MMOL/L (21-32) Anion Gap 7 mmol/L (5-15) Blood Urea Nitrogen 16 mg/dL (7-18) Creatinine 1.2 MG/DL (0.55-1.30) Estimat Glomerular Filtration Rate > 60 mL/min (>60) Glucose Level 131 MG/DL (74-106) H Calcium Level 8.9 MG/DL (8.5-10.1) Total Bilirubin 0.7 MG/DL (0.2-1.0) Aspartate Amino Transf (AST/SGOT) 30 U/L (15-37) Alanine Aminotransferase (ALT/SGPT) 61 U/L (12-78) Alkaline Phosphatase 99 U/L (46-116) Troponin I 0.002 ng/mL (0.000-0.056) Total Protein 7.5 G/DL (6.4-8.2) Albumin 3.8 G/DL (3.4-5.0) Globulin 3.7 g/dL Albumin/Globulin Ratio 1.0 (1.0-2.7) EKG Diagnostic Results Troponin ordered: Yes Rate: normal Rhythm: NSR ST Segments: no acute changes ASA given to the pt in ED: No Rhythm Strip Diag. Results EP Interpretation: yes Rhythm: NSR, no PVC's, no ectopy Chest X-Ray Diagnostic Results Chest X-Ray Diagnostic Results : Chest X-Ray Ordered: Yes # of Views/Limited/Complete: 1 View Indication: Chest Pain EP Interpretation: Yes Interpretation: no consolidation, no effusion, no pneumothorax, no acute cardiopulmonary disease Impression: No acute disease Electronically Signed by: Electronically signed by Ej Brito MD Last Vital Signs Date Time Temp Pulse Resp B/P (MAP) Pulse Ox O2 Delivery O2 Flow Rate FiO2 11/19/20 09:48 97.5 78 18 135/78 98 Room Air Status: improved Disposition: HOME, SELF-CARE Condition: Stable Scripts Acetaminophen* (TYLENOL EXTRA STRENGTH*) 500 Mg Tablet 500 MG ORAL Q8H PRN for Prn Headache/Temp > 101, #30 TAB 0 Refills Prov: Ej Brito MD 11/19/20 Levofloxacin* (LEVOFLOXACIN*) 750 Mg Tablet 750 MG ORAL DAILY, #5 TAB Prov: Ej Brito MD 11/19/20 Patient Instructions: Cough, Adult, [id number] Ej Brito MD Nov 19, 2020 10:20
--- NOTE | 2020-11-19 15:04 | Diagnostic Imaging Report ---
Indication: Chest pain Technique: XRAY Chest 1v Comparison: 06/15/2017 Findings: Heart is borderline enlarged but stable in size compared to the prior exam. Mediastinal contours are sharp. There is no focal airspace consolidation, pneumothorax or pleural effusion. Degenerative changes noted in the spine. Osseous structures demonstrate no acute abnormality. Impression: No radiographic evidence of acute cardiopulmonary disease.
== END 2020-11-19 09:49 | disposition home or self-care (01) ==
LOC: EMR 08:51
DX: R05 Cough (principal); I10 Essential (primary) hypertension
CPT/HCPCS: 36415; 71045; 80053; 84484; 85025; 99284